=== PATIENT | female | born 1985 | race Caucasian/White ===

== ENCOUNTER 2017-09-09 07:58 | Emergency (ER) | payer OTHER ==
[2017-09-09 08:10] VITALS: TEMP 97
--- NOTE | 2017-09-09 08:27 | ED PDOC ---
HPI: Abdomen Time Seen by Provider: 09/09/17 08:03 Chief Complaint (Nursing): Abdominal Pain History Per: Patient Onset/Duration Of Symptoms: Hrs (3) Current Symptoms Are (Timing): Still Present Severity: Moderate Pain Scale Rating Of: 4 Location Of Pain/Discomfort: LLQ Quality Of Discomfort: Sharp Associated Symptoms: Nausea. denies: Urinary Symptoms Exacerbating Factors: None Alleviating Factors: None Additional Complaint(s): LLQ abd pain since this AM. Denies vaginal bleeding. Nausea, no vomiting. No urinary sxs. Abnormal Vaginal Bleeding: No Past Medical History Vital Signs: Last Vital Signs Temp 97.0 F L 09/09/17 08:18 Pulse 63 09/09/17 08:18 Resp 20 09/09/17 08:18 BP 108/69 09/09/17 08:18 Pulse Ox 100 09/09/17 08:27 - Medical History PMH: Asthma - Family History Family History: States: Unknown Family Hx - Home Medications Home Medications: Ambulatory Orders Medication Instructions Recorded Albuterol Sulfate [Proair Hfa] 200 puff IH Q4 PRN 01/17/15 predniSONE [Prednisone] 40 mg PO DAILY #8 tab 01/17/15 Nitrofurantoin Macrocrystals 100 mg PO BID #20 cap 09/09/17 [Macrobid] - Allergies Allergies/Adverse Reactions: Allergies Allergy/AdvReac Type Severity Reaction Status Date / Time aspirin Allergy RASH Verified 09/09/17 08:18 Review of Systems Constitutional: Negative for: Chills Gastrointestinal: Positive for: Nausea, Abdominal Pain Genitourinary Female: Negative for: Dysuria, Frequency Musculoskeletal: Negative for: Back Pain Physical Exam - Physical Exam Appears: Positive for: Non-toxic, No Acute Distress Gastrointestinal/Abdominal: Positive for: Bowel Sounds, Soft, Tenderness (LLQ), Other (Gravid ) Back: Negative for: L CVA Tenderness, R CVA Tenderness Extremity: Positive for: Normal ROM Neurologic/Psych: Positive for: Alert, Oriented - Laboratory Results Result Diagrams: 09/09/17 08:47 09/09/17 08:47 - ECG O2 Sat by Pulse Oximetry: 100 Disposition - Clinical Impression Clinical Impression: UTI (urinary tract infection), Round ligament pain - Patient ED Disposition Is Patient to be Admitted: No Counseled Patient/Family Regarding: Studies Performed, Diagnosis, Rx Given - Disposition Disposition: Routine/Home Disposition Time: 10:15 Condition: FAIR Prescriptions: Nitrofurantoin Macrocrystals [Macrobid] 100 mg PO BID #20 cap Instructions: Urinary Tract Infection in (ED), Abdominal Pain in (ED) Forms: [facility] (Uzbek)
[2017-09-09 08:54] LABS: BASO # 0.1 K/uL (0.0-0.2); BASO % 0.8 % (0.0-2.0); EOS # 0.2 K/uL (0.0-0.7); EOS % 1.3 % (0.0-4.0); HEMOGLOBIN 14.1 g/dL (12.0-16.0); LYMPH # 2.4 K/uL (1.0-4.3); LYMPH % 18.3 % (20.0-40.0); MEAN CELL VOLUME 88.6 fl (81.0-99.0); MEAN CORPUSCULAR HEMOGLOBIN 29.5 pg (27.0-31.0); MEAN CORPUSCULAR HGB CONC 33.4 g/dL (33.0-37.0); MEAN PLATELET VOLUME 7.4 fl (7.2-11.7); MONO # 0.9 K/uL (0.0-0.8); MONO % 6.7 % (0.0-10.0); NEUT # 9.8 K/uL (1.8-7.0); NEUT % 72.9 % (50.0-75.0); NRBC % 0.1 % (0.0-0.0); RBC 4.79 Mil/uL (3.80-5.20); RED CELL DISTRIBUTION WIDTH 13.2 % (11.5-14.5); WHITE BLOOD COUNT 13.4 K/uL (4.8-10.8)
[2017-09-09 09:13] LABS: ALBUMIN 3.9 g/dL (3.5-5.0); ALT/SGPT 45 U/L (9-52); AST/SGOT 24 U/L (14-36); BLOOD UREA NITROGEN 8 mg/dl (7-17); GFR AFRICAN-AMERICAN > 60; GFR NON-AFRICAN AMERICAN > 60
--- NOTE | 2017-09-09 10:25 | US ---
PROCEDURE: Obstetrical ultrasound examination HISTORY: LLQ pain COMPARISON: None available TECHNIQUE: Transabdominal FINDINGS: There is a single live intrauterine gestation in breech presentation. The heart rate is 149 beats per minute. An anterior placenta is identified. There is no evidence of placenta previa. The cervix is long and closed. The cervix measures 4.3 cm in length. A grossly normal quantity of amniotic fluid is visualized. biometry yields a gestational age by ultrasound of 16 weeks 5 days. The FRANCHESKA by ultrasound is 02/19/2016. This is within 2 days of the FRANCHESKA by LMP. The EFW is 166.18 g. anatomy is not evaluated at this time. IMPRESSION: Single live intrauterine gestation of approximately 16 weeks 5 days gestational age. heart rate 149. Breech presentation. Anterior placenta. No previa. Cervix closed. Normal amniotic fluid volume.
[2017-09-09 10:47] VITALS: BP 127/71; PULSE 65; RESP 18; O2SAT 99
== END 2017-09-09 10:47 | disposition home or self-care (01) ==
LOC: H.ER 07:58
DX: O23.42 Unspecified infection of urinary tract in pregnancy, second trimester (principal); J45.909 Unspecified asthma, uncomplicated; O32.1XX0 Maternal care for breech presentation, not applicable or unspecified; Z36.9 Encounter for antenatal screening, unspecified; Z3A.16 16 weeks gestation of pregnancy